=== PATIENT | male | born 1970 | race Caucasian/White ===

== ENCOUNTER 2017-11-14 11:30 | Emergency (ER) | payer OTHER ==
[~2017-11-14] VITALS: Ht 157.5 cm; Wt 99.8 kg
--- NOTE | ~2017-11-14 | EKG ---
[place] [address] [facility] [employer] [place] [address] ELECTROCARDIOGRAM REPORT Name: TIERRA MONTENEGRO Room [facility]: [id number] Admission: 11/14/17 Attend Phys: Discharge: 11/14/17 Date of : 68 Report #: [id number] THIS REPORT FOR: //name// [facility] ED Test Date: 2017-11-14 Test Time: 12:02:07 Pat Name: TIERRA MONTENEGRO Department: Room: Gender: M [employer] Supervisor: KKODJOVI : 1970 Requested By: Radha Grey Order Number: [id number] MD: Merrick Grimes Measurements Intervals [place] Rate: 52 P: 19 UT: 153 QRS: 12 QRSD: 100 T: 20 QT: 450 QTc: 419 Interpretive Statements Sinus bradycardia Otherwise normal tracing No previous ECG available for comparison Electronically Signed On 11-16-2017 8:26:58 CDT by Merrick Grimes [email or web address] <ELECTRONICALLY SIGNED> By: Merrick Grimes MD, [facility] 11/16/17 0826 1202 1202 Merrick Grimes MD, FACC /EPI
[2017-11-14 12:14] LABS: ABSOLUTE NEUTROPHILS 10.8 thou/uL (1.4-8.2); BASOPHILS 0.6 % (0.0-2.0); HEMATOCRIT 43.5 % (42.0-52.0); HEMOGLOBIN 14.1 gm/dL (14.0-18.0); LYMPHOCYTES 6.3 % (24.0-44.0); MCH 26.1 pg (26.0-34.0); MCHC 32.5 g/dL (28.0-37.0); MCV 80.5 fL (80.0-100.0); MONOCYTES 3.1 % (1.0-8.0); PLATELET COUNT 251 thou/uL (150-400); RBC 5.41 mil/uL (4.50-6.00); RDW 13.4 % (10.5-14.5)
[2017-11-14 12:18] LABS: URINE BILIRUBIN NEGATIVE (Negative); URINE BLOOD TRACE (Negative); URINE CLARITY CLEAR; URINE COLOR YELLOW; URINE GLUCOSE-RANDOM* NEGATIVE (Negative); URINE KETONES NEGATIVE (Negative); URINE LEUKOCYTES-REFLEX NEGATIVE (Negative); URINE NITRITE-REFLEX NEGATIVE (Negative); URINE PROTEIN (DIPSTICK) NEGATIVE (Negative)
[2017-11-14 12:25] LABS: ANION GAP 10 mmol/L (7-16); BUN 12 mg/dL (7-18); CHLORIDE 98 mmol/L (98-107); CO2 26 mmol/L (21-32); GLUCOSE 143 mg/dL (74-106); POTASSIUM 3.4 mmol/L (3.5-5.1); SODIUM 134 mmol/L (136-145)
[2017-11-14 12:32] LABS: ALBUMIN 4.5 g/dL (3.4-5.0); LIPASE 206 U/L (73-393); SGOT 25 U/L (15-37); SGPT 36 U/L (30-65); TOTAL BILIRUBIN 0.7 mg/dL (<0.1-1.0); TOTAL PROTEIN 8.8 g/dL (6.4-8.2); TROPONIN-I <0.06 ng/mL (<0.06)
[2017-11-14] MEDS ORDERED: PEPCID20 MG PO (12:52)
[2017-11-14] MEDS ORDERED: PHENERGAN 25 MG25 M1 PO (12:52)
[2017-11-14] MEDS ORDERED: CARAFATE 1 GM TA1 G1 PO (12:52)
[2017-11-14 12:54] VITALS: BP 155/95
== END 2017-11-14 13:13 | disposition home or self-care (01) ==
LOC: ER 11:30
PROVIDERS: Physician Assistant
DX: R10.13 Epigastric pain (principal)